=== PATIENT | female | born 1970 | race Caucasian/White ===

== ENCOUNTER → 2016-09-15 | Outpatient (CLI) | payer OTHER ==
--- NOTE | 2016-09-16 09:06 | Diagnostic Imaging Report ---
Bilateral screening mammogram The current study was also evaluated with a Computer Aided Detection (CAD) system. Indication: Screening. No current complaints stated on the questionnaire. COMPARISON: 06/19/15. FINDINGS: The breasts are composed of heterogeneously dense parenchyma which may decrease mammographic sensitivity. Benign-appearing calcifications are seen. Allowing for technique and positional differences, no suspicious change is seen. IMPRESSION: Dense breasts with no definite change. ACR BI-RADS Category 2: Benign findings. Result letter will be mailed to the patient. Note: At least 10% of breast cancer is not imaged by mammography. Dictated by: Dictated on workstation # [id number]
== END ==
LOC: RAD 11:18
PROVIDERS: ATTEND Family Medicine
DX: Z12.31 Encounter for screening mammogram for malignant neoplasm of breast (principal); R92.2 Inconclusive mammogram
CPT/HCPCS: 77067

== ENCOUNTER → 2017-01-23 | Outpatient (CLI) | payer OTHER ==
[2017-01-23 13:45] LABS: THYROID STIMULATING HORMONE 1.13 UIU/ML (0.35-4.94)
== END ==
LOC: LAB 12:53
PROVIDERS: ATTEND Family Medicine
DX: M79.2 Neuralgia and neuritis, unspecified (principal); R20.2 Paresthesia of skin
CPT/HCPCS: 36415; 84439; 84443; 85652

== ENCOUNTER → 2017-03-20 | Outpatient (CLI) | payer OTHER ==
--- NOTE | 2017-03-20 17:52 | Diagnostic Imaging Report ---
EXAMINATION: Four views of the cervical spine with extension and flexion views. INDICATION: Neck pain. History of cervical fusion at C6-7 level. FINDINGS: Anterior fusion hardware is seen at C6/7 and appear intact. There is suggestion of osseous fusion also seen between these two vertebral bodies. The alignment of the posterior spinal line is satisfactory. The vertebral body heights are preserved. Disc heights are also preserved. Minimal anterior osteophytes at C5/6 seen. Flexion and extension views demonstrate stable normal alignment of the cervical spine with these positions. There is prominent sclerosis along the facet joints at C7/T1 level. The prevertebral soft tissues appear unremarkable. IMPRESSION: Osseous fusion of C6/7 vertebra is seen. Suggestion of sclerotic degenerative changes at the facet joints at C7/T1. Dictated by: Dictated on workstation # [id number]
== END ==
LOC: RAD 10:05
PROVIDERS: ATTEND Neurological Surgery
DX: G95.0 Syringomyelia and syringobulbia (principal); Z98.1 Arthrodesis status
CPT/HCPCS: 72050

== ENCOUNTER 2017-05-11 10:38 | Outpatient (RCR) | payer OTHER | END 2017-06-05 09:03 | disposition home or self-care (01) | DX: M54.12 Radiculopathy, cervical region (principal) ==

== ENCOUNTER → 2017-06-07 | Outpatient (CLI) | payer OTHER ==
[~2017-06-07] MED LIST: GADOBUTROL 7.5 MMOL/7.5 ML (GADAVIST) VIAL IV ONE
--- NOTE | 2017-06-07 09:45 | Diagnostic Imaging Report ---
PROCEDURE: MR imaging cervical spine with and without contrast. TECHNIQUE: Multiplanar and multisequence MRI of the cervical spine was performed with and without contrast. INDICATION: Syrinx. There are no previous MRI examinations available for comparison. FINDINGS: The plain film examination of the cervical spine performed on 03/20/2017 noted postsurgical changes consistent with anterior fusion of C6 and C7. There is also sclerosis of the facet joints of C7 and T1. On this exam, there is metallic artifact related to the orthopedic fixation devices at the C6-C7 level. The orthopedic hardware appears to be in good position. There is no evidence for spinal stenosis or nerve root encroachment at the C6-C7 level. At C5-C6, there is a slight disc bulge centrally. The disc flattens the ventral aspect of the thecal sac and narrows the AP diameter of thecal sac to 11.0 MM. There does not appear to be any significant neural foraminal narrowing at this level. There is also slight disc bulge centrally at the C4-C5 level. The AP diameter of the thecal sac is narrowed to 11.7 MM. There is no nerve root encroachment at this level either. The remainder of the cervical spine is unremarkable for spinal stenosis or nerve root encroachment. There is no abnormal signal arising from the osseous structures to suggest bone edema or fracture. On the T2 sagittal images, there is a thin area of increased signal extending through the cord. Increased signal measures less than 1 MM in maximum AP diameter and extends from the C6-C7 disc level to the midportion of the vertebral body of T1. This does suggest a very small syrinx of the cord. This finding is of uncertain etiology. There is no abnormal enhancement of this portion of the cord on the postcontrast images to suggest an underlying neoplastic process. There is no sign of a paraspinal mass. The expected carotid and vertebral flow voids are evident bilaterally. IMPRESSION: 1. There are postsurgical changes consistent with anterior fusion of C6 and C7. The orthopedic hardware appears to be in good position and there is no sign of recurrent stenosis or nerve root encroachment at this level. 2. The remainder of the cervical spine is unremarkable for spinal stenosis or nerve root encroachment as well. 3. There is no acute bony abnormality identified. 4. There is a minimal syrinx of the lower cervical cord. This is of uncertain etiology. There is no abnormal enhancement in this area to suggest underlying neoplastic process, however. Dictated by: Dictated on workstation # [id number]
== END ==
LOC: RAD 07:00
PROVIDERS: ATTEND Neurological Surgery
DX: G95.0 Syringomyelia and syringobulbia (principal); M47.812 Spondylosis without myelopathy or radiculopathy, cervical region; Z98.890 Other specified postprocedural states
CPT/HCPCS: 72156

== ENCOUNTER → 2017-10-31 | Outpatient (CLI) | payer OTHER ==
[2017-10-31 11:13] LABS: BASOPHILS # (AUTO) 0.1 10^3/uL (0.0-0.1); BASOPHILS % (AUTO) 1 % (0-10); EOSINOPHILS # (AUTO) 0.2 10^3/uL (0.0-0.3); EOSINOPHILS % (AUTO) 4 % (0-10); HEMATOCRIT 32 % (35-52); HEMOGLOBIN 9.8 G/DL (11.5-16.0); LYMPHOCYTES # (AUTO) 1.9 X 10^3 (1.0-4.0); LYMPHOCYTES % (AUTO) 38 % (12-44); MEAN CORPUSCULAR HEMOGLOBIN 25 PG (25-34); MEAN CORPUSCULAR HGB CONC 31 G/DL (32-36); MEAN CORPUSCULAR VOLUME 80 FL (80-99); MEAN PLATELET VOLUME 9.3 FL (7.4-10.4); MONOCYTES # (AUTO) 0.5 X 10^3 (0.0-1.0); MONOCYTES % (AUTO) 10 % (0-12); NEUTROPHILS # (AUTO) 2.3 X 10^3 (1.8-7.8); NEUTROPHILS % (AUTO) 47 % (42-75); PLATELET COUNT 238 10^3/uL (130-400); RED BLOOD COUNT 3.95 10^6/uL (4.35-5.85); RED CELL DISTRIBUTION WIDTH 16.6 % (10.0-14.5); WHITE BLOOD COUNT 4.9 10^3/uL (4.3-11.0)
[2017-10-31 11:38] LABS: ALANINE AMINOTRANSFERASE 11 U/L (0-55); ALBUMIN 4.2 GM/DL (3.2-4.5); ALKALINE PHOSPHATASE 65 U/L (40-136); BILIRUBIN,TOTAL 0.3 MG/DL (0.1-1.0); BUN/CREATININE RATIO 7; CALCIUM 9.1 MG/DL (8.5-10.1); CARBON DIOXIDE 23 MMOL/L (21-32); CHLORIDE 109 MMOL/L (98-107); GFR ESTIMATED > 60; GLUCOSE 84 MG/DL (70-105); POTASSIUM 3.8 MMOL/L (3.6-5.0); SODIUM 139 MMOL/L (135-145)
[2017-10-31 11:59] LABS: FREE T4 (FREE THYROXINE) 0.81 NG/DL (0.70-1.48)
== END ==
LOC: LAB 10:46
PROVIDERS: ATTEND Family Medicine
DX: R53.83 Other fatigue (principal); D64.9 Anemia, unspecified; R06.00 Dyspnea, unspecified
CPT/HCPCS: 36415; 80053; 82728; 83540; 84439; 84443; 85025

== ENCOUNTER → 2018-02-09 | Outpatient (CLI) | payer OTHER ==
--- NOTE | 2018-02-09 10:42 | Diagnostic Imaging Report ---
Digital mammogram. Bilateral screening with 3-D tomosynthesis. The study was compared to prior exams of 12/03/2017, 06/19/2015, and 06/02/2014. At this time there are no current complaints. The current study was also evaluated with a Computer Aided Detection (CAD) system. FINDINGS: The fibroglandular tissue in both breasts is heterogeneously dense. This does limit the sensitivity of this exam. Overall, there does not appear to have been any significant change when compared to the prior study. No primary or secondary sign of malignancy is noted. IMPRESSION: There is no radiographic evidence for malignancy. ACR BI-RADS Category 1: Negative. Result letter will be mailed to the patient. Note: At least 10% of breast cancer is not imaged by mammography. Dictated by: Dictated on workstation # [id number]
== END ==
LOC: RAD 07:37
PROVIDERS: ATTEND Family Medicine
DX: Z12.31 Encounter for screening mammogram for malignant neoplasm of breast (principal)
CPT/HCPCS: 77067

== ENCOUNTER → 2018-09-19 | Outpatient (CLI) | payer OTHER ==
[2018-09-19 07:51] LABS: BASOPHILS % (AUTO) 1 % (0-10); EOSINOPHILS # (AUTO) 0.1 10^3/uL (0.0-0.3); EOSINOPHILS % (AUTO) 2 % (0-10); HEMATOCRIT 40 % (35-52); HEMOGLOBIN 13.4 G/DL (11.5-16.0); LYMPHOCYTES # (AUTO) 1.5 X 10^3 (1.0-4.0); LYMPHOCYTES % (AUTO) 27 % (12-44); MEAN CORPUSCULAR HEMOGLOBIN 32 PG (25-34); MEAN CORPUSCULAR HGB CONC 34 G/DL (32-36); MEAN CORPUSCULAR VOLUME 95 FL (80-99); MEAN PLATELET VOLUME 9.9 FL (7.4-10.4); MONOCYTES # (AUTO) 0.6 X 10^3 (0.0-1.0); MONOCYTES % (AUTO) 11 % (0-12); NEUTROPHILS # (AUTO) 3.3 X 10^3 (1.8-7.8); NEUTROPHILS % (AUTO) 59 % (42-75); PLATELET COUNT 193 10^3/uL (130-400); RED CELL DISTRIBUTION WIDTH 12.3 % (10.0-14.5); WHITE BLOOD COUNT 5.5 10^3/uL (4.3-11.0)
[2018-09-19 08:13] LABS: ALANINE AMINOTRANSFERASE 15 U/L (0-55); ALBUMIN 4.1 GM/DL (3.2-4.5); ALKALINE PHOSPHATASE 61 U/L (40-136); BILIRUBIN,TOTAL 0.5 MG/DL (0.1-1.0); BUN/CREATININE RATIO 13; CALCIUM 9.1 MG/DL (8.5-10.1); CARBON DIOXIDE 22 MMOL/L (21-32); CHLORIDE 108 MMOL/L (98-107); CHOLESTEROL 145 MG/DL (< 200); CREATININE SERUM 0.71 MG/DL (0.60-1.30); GFR ESTIMATED > 60; GLUCOSE 89 MG/DL (70-105); HDL CHOLESTEROL 63 MG/DL (40-60); SODIUM 141 MMOL/L (135-145); TOTAL PROTEIN 7.1 GM/DL (6.4-8.2); TRIGLYCERIDES 71 MG/DL (<150); VLDL CHOLESTEROL 14 MG/DL (5-40)
[2018-09-19 08:34] LABS: FREE T4 (FREE THYROXINE) 0.77 NG/DL (0.70-1.48)
== END ==
LOC: LAB 07:38
PROVIDERS: ATTEND Family Medicine
DX: Z00.00 Encounter for general adult medical examination without abnormal findings (principal)
CPT/HCPCS: 36415; 80053; 80061; 84439; 84443; 85025

== ENCOUNTER → 2019-02-11 | Outpatient (CLI) | payer OTHER ==
--- NOTE | 2019-02-11 09:06 | Diagnostic Imaging Report ---
INDICATION: Routine screening. COMPARISON: 02/09/2018 and 09/15/2016. TECHNIQUE: 2D and 3D bilateral screening mammography was performed with CAD. FINDINGS: Both breasts are heterogeneously dense, limiting the sensitivity of mammography. Benign nodules in the lateral aspect of the left breast are again noted and stable. There are benign calcifications in both breasts. No spiculated mass or malignant appearing microcalcifications are identified. The axillae are unremarkable. IMPRESSION: No mammographic features suspicious for malignancy are identified. ACR BI-RADS Category 2: Benign findings. Result letter will be mailed to the patient. Note: At least 10% of breast cancer is not imaged by mammography. Dictated by: Dictated on workstation # [id number]
== END ==
LOC: RAD 08:06
PROVIDERS: ATTEND Family Medicine
DX: Z12.31 Encounter for screening mammogram for malignant neoplasm of breast (principal)
CPT/HCPCS: 77067

== ENCOUNTER 2019-03-06 05:35 | Outpatient (CLI) | payer OTHER ==
[~2019-03-06] VITALS: Ht 167.7 cm; Wt 68.6 kg
[2019-03-06] MEDS ORDERED: FLUT9.9S NSEACH (13:55)
[2019-03-06] MEDS ORDERED: MULT-884 PO (13:55)
[2019-03-06] MEDS ORDERED: CETI10TA20 PO (13:55)
== END 2019-03-06 14:04 | disposition home or self-care (01) ==
LOC: PREOP 05:35
PROVIDERS: ATTEND Podiatrist Foot & Ankle Surgery
DX: Z01.818 Encounter for other preprocedural examination (principal)

== ENCOUNTER 2019-03-08 11:28 | Day surgery (SDC) | payer OTHER ==
[~2019-03-08] VITALS: Ht 167.7 cm; Wt 68.6 kg
[2019-03-08] VITALS (11 sets, daily range): BP systolic 112–127; BP diastolic 70–76
[~2019-03-08 11:28] MED LIST changes: +CETI10TA20 PO; +FLUT9.9S NSEACH; -GADOBUTROL 7.5 MMOL/7.5 ML (GADAVIST) VIAL IV ONE; +MULT-884 PO
[2019-03-08] MEDS ORDERED: ceFAZolin INJECTION 1,000 MG in WATER (STERILE) FOR INJECTION 10 ML IV ONE (11:45)
[2019-03-08] MEDS ORDERED: fentaNYL INJECTION 100 MCG/2 ML AMP ONE ×3 (11:52→17:10)
[2019-03-08] MEDS ORDERED: proPOfol 200 MG/20 ML (DIPRIVAN) VIAL IV ONE (11:56)
[2019-03-08] MEDS ORDERED: ONDANSETRON 4 MG/2 ML (SDV) Z0FRAN ONE ×3 (11:56→17:05)
[2019-03-08] MEDS ORDERED: DEXAMETHASONE 10 MG/ML (DECADRON) 1 ML VIAL ONE ×2 (11:56→12:19)
[2019-03-08] MEDS ORDERED: LIDOCAINE PF 2% 5 ML (XYLOCAINE) VIAL ONE (11:56)
[2019-03-08] MEDS ORDERED: SEVOFLURANE (ULTANE) 15 ML INHAL SOLN ONE ×4 (11:56→17:03)
[2019-03-08] MEDS ORDERED: MIDAZOLAM 2 MG/2 ML (VERSED) VIAL ONE ×2 (11:57→12:36)
[2019-03-08] MEDS ORDERED: KETAMINE/NaCl 50 MG/5 ML SYRINGE (ED ONLY) ONE (11:57)
[2019-03-08] MEDS ORDERED: fentaNYL INJECTION 100 MCG/2 ML AMP IV ONE (12:00)
[2019-03-08] MEDS: LACTATED RINGERS 1,000 ML IV PRN ×3 (12:03→18:10)
[2019-03-08] MEDS ORDERED: IBUP-2055 PO (12:10)
[2019-03-08] MEDS ORDERED: ACET-77 PO (12:10)
[2019-03-08] MEDS ORDERED: BUPIVACAINE 0.5% 30 ML (SENSORCAINE) VIAL ONE (12:20)
[2019-03-08] MEDS ORDERED: ceFAZolin INJECTION 1,000 MG ONE (12:39)
[2019-03-08] MEDS ORDERED: WATER (STERILE) FOR INJECTION 10 ML ONE (12:39)
--- NOTE | 2019-03-08 12:45 | Progress Note-Pre Operative ---
Pre-Operative Progress Note H&P Reviewed The H&P was reviewed, patient examined and no changes noted. Date Seen by Provider: Mar 08, 2019 Time Seen by Provider: 12:45 Date H&P Reviewed: Mar 08, 2019 Time H&P Reviewed: 12:45 Pre-Operative Diagnosis: Hallux valgus, hypertrophic 2nd metatarsal, 2nd hammertoe, all left foot KYLEE DONOVAN DPM Mar 08, 2019 12:45 POS
[2019-03-08] MEDS ORDERED: ROCURONIUM 10 MG/ML 5 ML SYRINGE IV ONE (12:52)
[2019-03-08] MEDS ORDERED: SUCCINYLCHOLINE INJ 100 MG/5 ML SYR ONE (12:52)
[2019-03-08] MEDS ORDERED: ceFAZolin INJECTION 1,000 MG IV ONE (13:26)
[2019-03-08] MEDS ORDERED: CATHETER FLUSH 10 ML SYR IV PRN (14:15)
[2019-03-08] MEDS ORDERED: PHENYLEPHRINE 100 MCG/ML 10 ML (ANESTHESIA) SYR ONE (14:27)
--- NOTE | 2019-03-08 16:58 | Progress Note-Post Operative ---
Post-Operative Progess Note Surgeon (s)/Pitch Filler (s) Surgeon KYLEE DONOVAN DPM Pitch Filler: None Pre-Operative Diagnosis Hallux valgus, hypertrophic 2nd metatarsal, 2nd hammertoe, all left foot Post-Operative Diagnosis Same plus DJD or left 1st MTPJ Procedure & Operative Findings Date of Procedure 03/08/19 Procedure Performed/Findings Arthrodesis of the 1st metatarsal-cuneiform joint, Candido bunionectomy, 2nd metatarsal osteotomy, hammertoe reduction 2nd digit, all left Anesthesia Type General Estimated Blood Loss Estimated blood loss (mL): Minimal Specimens/Packing Specimens Removed none KYLEE DONOVAN DPM Mar 08, 2019 16:58 POS
[2019-03-08] MEDS ORDERED: fentaNYL INJECTION 100 MCG/2 ML AMP IVP ONE (17:15)
[2019-03-08] MEDS ORDERED: ONDANSETRON 4 MG/2 ML (SDV) Z0FRAN IVP PRN (17:15)
[2019-03-08] MEDS ORDERED: PROMETHAZINE INJ 25 MG/ML (PHENERGAN) AMP ONE (17:21)
[2019-03-08] MEDS ORDERED: PROMETHAZINE INJ 25 MG/ML (PHENERGAN) AMP IVP PRN (17:30)
--- NOTE | 2019-03-08 17:44 | Anesthesia-General Post-Op ---
General Patient Condition Mental Status/LOC: Same as Preop Cardiovascular: Satisfactory Nausea/Vomiting: Present Respiratory: Satisfactory Pain: Controlled Complications: Absent Post Op Complications Complications None Follow Up Care/Instructions Patient Instructions None needed. Anesthesia/Patient Condition Patient Condition Patient is doing well, C/O nausea but it is better after phenergan, stable vital signs, no apparent adverse anesthesia problems. BARBRA LOUISE DO Mar 08, 2019 17:44 POS
[2019-03-08] MEDS ORDERED: ONDANSETRON 4 MG/2 ML (SDV) Z0FRAN IVP ONE (18:30)
--- NOTE | 2019-03-09 03:07 | OPERATIVE REPORT ---
DATE OF SERVICE: 03/08/2019 SURGEON: Chayo Donovan DPM PREOPERATIVE DIAGNOSES: 1. Hallux abductovalgus with metatarsal primus varus, left. 2. Hypertrophic second metatarsal, left. 3. Hammer digit syndrome, left second digit. POSTOPERATIVE DIAGNOSES: 1. Hallux abductovalgus with metatarsal primus varus, left. 2. Hypertrophic second metatarsal, left. 3. Hammer digit syndrome, left second digit. 4. 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 PROCEDURES: 1. Arthrodesis of the left first metatarsal cuneiform joint. 2. Candido type bunionectomy, left. 3. Second metatarsal osteotomy. 4. Reduction of hammertoe, left second digit with K-wire fixation. WOUND CLASS: Clean. ANESTHESIA: General. HEMOSTASIS: Pneumatic thigh tourniquet at 250 mmHg. INDICATIONS: This 48-year-old female presents complaining of a painful left foot. Conservative therapy is met with unsatisfactory results and the patient is agreeable to surgical intervention after risks and complications were discussed at length. No guarantees were extended to the patient and she is willing to proceed. DESCRIPTION OF PROCEDURE: The patient was brought back to the operating table, placed in secure supine position. Appropriate timeout was performed. Pneumatic thigh tourniquet was placed on the left lower extremity over several layers of padding. The general anesthetic was then induced. The left foot was anesthetized utilizing 10 mL of 0.5% Marcaine injected in a Montiel block as well as a local infusion to the second metatarsal, left foot was then prepped and draped in normal sterile manner. The left foot was then elevated, allowed to exsanguinate after which the tourniquet was inflated to 250 mmHg. Attention was then directed to the dorsal aspect of the left first metatarsal cuneiform joint where a 6 cm longitudinal linear incision was created. The incision was deepened in same plane with great care to identify and retract all vital neurovascular structures. All the necessary blood vessels were cauterized as encountered. The incision was deepened down to the deep tissue where the extensor hallucis longus was identified and retracted medially. Dissection was carried out down to the capsule tissue and periosteum certain on the dorsal aspect of the first metatarsal cuneiform joint where subperiosteal dissection was then carried out. Next, the articular cartilage from the distal aspect of the medial cuneiform and the base of the first metatarsal were then removed utilizing the oscillating saw. The cuts were biased in an orientation of the greater amount of bone reduction from the plantar aspect of the cut. This allowed for greater plantar flexion of the first metatarsal. It also was biased as to reduce the first intermetatarsal angle down to approximately zero. Once the articular cartilage was removed, the distal aspect of the medial cuneiform and the base of the first metatarsal were fenestrated. The wound was flushed at this point and a Welsh allograft was placed into the arthrodesis site. First a 5 mm sizer was applied and the intraoperative x-ray demonstrated excellent reduction of the first intermetatarsal angle as well as plantar flexion of the distal aspect of the first metatarsal; however, it was found that the 8 mm sizer provided a better parabola length for the forefoot. The allograft bone was then placed inside the arthrodesis site and the first metatarsal cuneiform joint was further shaped and contoured with a power sagittal saw and power bur. The Welsh plating system was then used. A left Lapidus graft splinting plate was used with the 2 proximal screws of 3.5 locking screws of 20 and 18 mm of length. Next, the interfragment screw was applied from distal dorsal to proximal plantar. It was a 3.5 screw of 40 mm of length confirmed by intraoperative C-arm. Also locking screws of 3.5 mm diameter and one was 16 mm of length and the other was 20 mm of length. The plantar distal screw was then placed with a percutaneous puncture incision from the medial aspect of the first metatarsal and this screw was a 3.5 screw of 20 mm of length. Excellent bony apposition and fixation was appreciated at this time. The intraoperative x-ray indicated excellent reduction of the first intermetatarsal angle and appropriate length of the metatarsal parabola. The wound was flushed with copious amounts of normal saline and closure was then performed in layers. Deep closure was performed with 3-0 Vicryl, superficial with 4-0 Vicryl, skin closed with 4-0 Prolene in a horizontal mattress type stitch. Attention was then directed to the dorsal aspect of the left first metatarsophalangeal joint where a 4.5 cm longitudinal linear incision was created. The incision was deepened in the same plane with great care to identify and retract all vital neurovascular structures. Only the necessary blood vessels were cauterized as encountered. The incision was deepened down to the capsular tissue where a longitudinal capsulotomy was performed. This exposed the hypertrophic medial eminence of the first metatarsal head, which was resected utilizing a power sagittal saw. The dorsal eminence to the first metatarsal head was also resected with power sagittal saw and the area was further contoured and smoothed with a power fuentes. Inspection of the head of the first metatarsal noted an area of approximately 7 x 5 mm that was devoid of articular cartilage to the central aspect distal first metatarsal head. This area was then fenestrated and debrided of loose articular cartilage. The area was then flushed with copious amounts of normal saline. Attention was then directed to the diaphysis of the proximal phalanx, left hallux where subperiosteal dissection was carried out. An osteotomy was then performed in this area. Utilizing a power sagittal saw, an Candido type of procedure was performed with the base medial and lateral cortices of the diaphysis held intact. The wedge of bone was resected and the gap was closed reducing the hallux valgus deformity. The wound was flushed with copious amounts of normal saline. Two passport application examiner holes were created to the dorsal medial aspect of the osteotomy and a 28-gauge monofilament guidewire was then passed through this passport application examiner hole securing the osteotomy in a closed position. Excellent bony apposition and fixation was appreciated at this time. The first metatarsophalangeal joint was then placed through passive range of motion with minimal crepitation noted at this time. Inspection of the sesamoids indicated no specific adhesions at this time. The wound was flushed with copious amounts of normal saline and closure was then performed. Deep closure was performed with 3-0 Vicryl, superficial with 4-0 Vicryl, skin closure with 4-0 Prolene in a horizontal mattress type stitch. Attention was then directed to the dorsal aspect of the distal left second ray where a 6 cm longitudinal linear incision was created from the distal interphalangeal joint of the toe up into the surgical neck area of the second metatarsal. The incision was deepened in the same plane with great care to identify and retract all vital neurovascular structures. Only necessary blood vessels were cauterized as encountered. The excision was deepened down to the extensor tendon where a Z slide lengthening was performed. The extensor tendon was reflected proximally. The extensor brand released. A longitudinal capsulotomy was performed and subperiosteal dissection carried out to the dorsal aspect of the surgical neck of the second metatarsal. After this a power sagittal saw was utilized to create an oblique osteotomy from dorsal to plantar with the distal lateral to proximal medial orientation. This allowed the capital fragment to translocate proximally and medially realigning the second digit in a more appropriate behavior. Once the realignment had been performed, a 2.0 snap-off screw 14 mm of length was driven from distal medial to proximal lateral across the osteotomy with excellent bony apposition and fixation was appreciated at this time. Attention was then directed to the distal interphalangeal joint of the left second toe where an arthrodesis was performed to the proximal interphalangeal joint. The head of the proximal phalanx was fashioned into a peg and a hole was created to the base of the middle phalanx for the peg-in-hole type arthrodesis. Once the digit was aligned a 0.054 smooth K-wire was driven down the toe securing the arthrodesis site and toe in rectus alignment. The excess K wire out the end of the toe was cut and a protective ball placed over the end of the wire. The wound was flushed with copious amounts of normal saline throughout the procedure. The wound was then closed in layers. The deep closure was performed with 3-0 Vicryl, superficial with 4-0 Vicryl, skin closed with 4-0 Prolene in a horizontal mattress type stitch. Postoperative injection consisted of 18 mL of 0.5% Marcaine injected in a Montiel block as well as a block to the second ray, left foot. Postoperative injection also included 10 mg dexamethasone into the first intermetatarsal space, left foot. Postoperative dressing consisted of Betadine soaked Adaptic, sterile 4 x 4, sterile Kerlix all secured with a Coban wrap. The patient tolerated the anesthesia and procedure well and was transported from the operating room to the recovery area with vital signs stable and vascular status intact to all digits of the left foot. She was given a prescription for Keflex and Vicodin postoperatively. She is to be nonweightbearing on the left lower extremity and rest, ice and elevate. We will see the patient back in the office in approximately 10 days' period of time or sooner if necessary. Job ID: [id number] DocumentID: [id number] Dictated Date: 03/08/2019 17:16:44 Audio Visual Production Specialist Date: 03/09/2019 03:06:35 Dictated By: CHAYO DONOVAN DPM
== END 2019-03-08 19:50 | disposition home or self-care (01) ==
LOC: SDC 11:28
PROVIDERS: ATTEND Podiatrist Foot & Ankle Surgery
DX: M20.12 Hallux valgus (acquired), left foot (principal); M89.372 Hypertrophy of bone, left ankle and foot; M20.42 Other hammer toe(s) (acquired), left foot; M19.042 Primary osteoarthritis, left hand; Z79.2 Long term (current) use of antibiotics; Z79.899 Other long term (current) drug therapy
CPT/HCPCS: 84703; 87081

== ENCOUNTER 2019-04-26 11:15 | Outpatient (RCR) | payer OTHER ==
[~2019-04-26 11:15] MED LIST changes: +ACET-78 PO; +IBUP-2473 PO
== END 2019-05-29 | disposition home or self-care (01) ==
DX: M54.12 Radiculopathy, cervical region (principal); R29.898 Other symptoms and signs involving the musculoskeletal system

== ENCOUNTER → 2019-10-14 | Outpatient (CLI) | payer OTHER ==
[~2019-10-14] MED LIST changes: -CETI10TA20 PO; +CETI10TA21 PO
[2019-10-14 07:40] LABS: BASOPHILS # (AUTO) 0.1 10^3/uL (0.0-0.1); BASOPHILS % (AUTO) 1 % (0-10); EOSINOPHILS # (AUTO) 0.2 10^3/uL (0.0-0.3); EOSINOPHILS % (AUTO) 4 % (0-10); HEMATOCRIT 39 % (35-52); HEMOGLOBIN 13.1 G/DL (11.5-16.0); LYMPHOCYTES # (AUTO) 1.9 X 10^3 (1.0-4.0); LYMPHOCYTES % (AUTO) 33 % (12-44); MEAN CORPUSCULAR HEMOGLOBIN 31 PG (25-34); MEAN CORPUSCULAR HGB CONC 34 G/DL (32-36); MEAN CORPUSCULAR VOLUME 93 FL (80-99); MONOCYTES # (AUTO) 0.6 X 10^3 (0.0-1.0); MONOCYTES % (AUTO) 11 % (0-12); NEUTROPHILS % (AUTO) 52 % (42-75); PLATELET COUNT 194 10^3/uL (130-400); RED CELL DISTRIBUTION WIDTH 12.8 % (10.0-14.5); WHITE BLOOD COUNT 5.8 10^3/uL (4.3-11.0)
[2019-10-14 08:03] LABS: ALANINE AMINOTRANSFERASE 13 U/L (0-55); ALKALINE PHOSPHATASE 53 U/L (40-136); BILIRUBIN,TOTAL 0.3 MG/DL (0.1-1.0); BUN/CREATININE RATIO 18; CALCIUM 9.2 MG/DL (8.5-10.1); CARBON DIOXIDE 21 MMOL/L (21-32); CHLORIDE 108 MMOL/L (98-107); CHOLESTEROL 165 MG/DL (< 200); CREATININE SERUM 0.76 MG/DL (0.60-1.30); GFR ESTIMATED > 60; GLUCOSE 92 MG/DL (70-105); HDL CHOLESTEROL 66 MG/DL (40-60); SODIUM 140 MMOL/L (135-145); TOTAL PROTEIN 7.2 GM/DL (6.4-8.2); TRIGLYCERIDES 55 MG/DL (<150); VLDL CHOLESTEROL 11 MG/DL (5-40)
== END ==
LOC: LAB 07:27
PROVIDERS: ATTEND Family Medicine
DX: Z00.00 Encounter for general adult medical examination without abnormal findings (principal)
CPT/HCPCS: 36415; 80053; 80061; 84443; 85025

== ENCOUNTER 2020-01-16 13:58 | Outpatient (RCR) | payer OTHER ==
[~2020-01-16 13:58] MED LIST changes: -CETI10TA21 PO; +CETI10TA49 PO
== END 2020-02-10 | disposition home or self-care (01) ==
PROVIDERS: ATTEND Podiatrist Foot & Ankle Surgery
DX: M21.272 Flexion deformity, left ankle and toes (principal); Z98.1 Arthrodesis status

== ENCOUNTER → 2020-06-01 | Outpatient (CLI) | payer OTHER ==
--- NOTE | 2020-06-01 09:36 | Diagnostic Imaging Report ---
INDICATION: Routine screening. COMPARISON: 02/11/2019 and 02/09/2018. TECHNIQUE: 2D and 3D bilateral screening mammography was performed with CAD. FINDINGS: Both breasts are heterogeneously dense, limiting the sensitivity of mammography. There are benign calcifications in both breasts. Benign nodules in the outer left breast appear stable. No new mass or malignant appearing microcalcifications are seen. The axillae are unremarkable. IMPRESSION: No mammographic features suspicious for malignancy are identified. ACR BI-RADS Category 2: Benign findings. Result letter will be mailed to the patient. Note: At least 10% of breast cancer is not imaged by mammography. Dictated by: Dictated on workstation # [id number]
== END ==
LOC: RAD 08:00
PROVIDERS: ATTEND Nurse Practitioner Family
DX: Z12.31 Encounter for screening mammogram for malignant neoplasm of breast (principal)
CPT/HCPCS: 77063; 77067

== ENCOUNTER → 2020-10-30 | Outpatient (CLI) | payer OTHER ==
[2020-10-30 07:53] LABS: BASOPHILS % (AUTO) 1 % (0-10); EOSINOPHILS # (AUTO) 0.1 10^3/uL (0.0-0.3); EOSINOPHILS % (AUTO) 2 % (0-10); HEMATOCRIT 39 % (35-52); HEMOGLOBIN 13.1 g/dL (11.5-16.0); LYMPHOCYTES # (AUTO) 1.5 10^3/uL (1.0-4.0); LYMPHOCYTES % (AUTO) 37 % (12-44); MEAN CORPUSCULAR HEMOGLOBIN 33 pg (25-34); MEAN CORPUSCULAR HGB CONC 33 g/dL (32-36); MEAN CORPUSCULAR VOLUME 98 fL (80-99); MEAN PLATELET VOLUME 9.3 fL (9.0-12.2); MONOCYTES # (AUTO) 0.5 10^3/uL (0.0-1.0); MONOCYTES % (AUTO) 12 % (0-12); NEUTROPHILS # (AUTO) 1.9 10^3/uL (1.8-7.8); NEUTROPHILS % (AUTO) 48 % (42-75); PLATELET COUNT 188 10^3/uL (130-400)
[2020-10-30 08:14] LABS: ALANINE AMINOTRANSFERASE 15 U/L (0-55); ALBUMIN 3.9 GM/DL (3.2-4.5); ALKALINE PHOSPHATASE 49 U/L (40-136); BILIRUBIN,TOTAL 0.2 MG/DL (0.1-1.0); BUN/CREATININE RATIO 16; CALCIUM 8.9 MG/DL (8.5-10.1); CARBON DIOXIDE 25 MMOL/L (21-32); CHLORIDE 109 MMOL/L (98-107); CHOLESTEROL 146 MG/DL (< 200); CREATININE SERUM 0.75 MG/DL (0.60-1.30); GFR ESTIMATED > 60; GLUCOSE 88 MG/DL (70-105); HDL CHOLESTEROL 57 MG/DL (40-60); POTASSIUM 3.8 MMOL/L (3.6-5.0); SODIUM 142 MMOL/L (135-145); TOTAL PROTEIN 6.8 GM/DL (6.4-8.2); TRIGLYCERIDES 49 MG/DL (<150); VLDL CHOLESTEROL 10 MG/DL (5-40)
[2020-10-30 08:35] LABS: FREE T4 (FREE THYROXINE) 0.76 NG/DL (0.70-1.48)
== END ==
LOC: LAB 07:31
PROVIDERS: ATTEND Family Medicine
DX: Z00.00 Encounter for general adult medical examination without abnormal findings (principal); S92.902G Unspecified fracture of left foot, subsequent encounter for fracture with delayed healing
CPT/HCPCS: 36415; 80053; 80061; 82306; 84439; 84443; 85025

== ENCOUNTER 2021-02-05 05:32 | Outpatient (CLI) | payer OTHER ==
[~2021-02-05] VITALS: Ht 167.6 cm; Wt 67.2 kg
[2021-02-08] MEDS ORDERED: ACET-93 PO (13:19)
[2021-02-08] MEDS ORDERED: CALC-79 PO (13:19)
[2021-02-08] MEDS ORDERED: MV-M1TAB57 PO (13:19)
== END 2021-02-08 14:16 | disposition home or self-care (01) ==
LOC: PREOP 05:32
PROVIDERS: ATTEND Internal Medicine
DX: Z01.818 Encounter for other preprocedural examination (principal)

== ENCOUNTER 2021-02-12 06:58 | Day surgery (SDC) | payer OTHER ==
--- NOTE | 2021-02-08 07:55 | HISTORY AND PHYSICAL ---
DATE OF SERVICE: COLONOSCOPY HISTORY AND PHYSICAL DATE OF ADMISSION: . HISTORY OF PRESENT ILLNESS: The patient is a 50-year-old white female referred by Dr. Brown for her first screening colonoscopy. She has had one maternal uncle with colon cancer, but is not aware of any other family history for colon cancer. She denies abdominal pain, bowel habit change, melena or bright red blood per rectum. She has been feeling well in her usual state of good health. PAST SURGICAL HISTORY: Significant for two C-sections. She had a cervical C6-7 fusion, has had breast reduction surgery and left bunionectomy with osteotomy. PAST MEDICAL HISTORY: Otherwise, unremarkable. MEDICATIONS: She takes no prescription medication. ALLERGIES: She reports no known drug allergies. SOCIAL HISTORY: She is employed, service desk associate staff at [employer] with no past smoking or drinking history. PHYSICAL EXAMINATION: GENERAL: Reveals a white female, appears to be in no acute distress, alert, articulate, and well kempt. VITAL SIGNS: Weight 157 pounds and blood pressure 110/80. HEENT: Unremarkable. Sclerae nonicteric. CHEST: Clear to auscultation. CARDIOVASCULAR: Reveals a regular rate and rhythm without murmur, S3 or S4. ABDOMEN: Soft, supple without mass, organomegaly or tenderness. EXTREMITIES: Reveal no cyanosis, clubbing or edema. ASSESSMENT AND PLAN: The patient is being set up for her first screening colonoscopy, deemed to be essentially at the average risk. She does have one maternal uncle diagnosed with colon cancer greater than 60 years of age. I thank you for the referral of this pleasant lady. Job ID: [id number] DocumentID: [id number] Dictated Date: 01/28/2021 18:05:42 Ocean Clam Boat Captain Date: 01/28/2021 18:27:35 Dictated By: WILLIAM OLSEN MD
[~2021-02-12] VITALS: Ht 167.6 cm; Wt 67.2 kg
[~2021-02-12 06:58] MED LIST changes: +ACET-93 PO; +CALC-79 PO; +MV-M1TAB57 PO
[2021-02-12] MEDS ORDERED: LACTATED RINGERS 1,000 ML IV STA (06:59)
[2021-02-12] MEDS ORDERED: LIDOCAINE JELLY 2% 6 ML SYRINGE MM PRN (07:00)
[2021-02-12] MEDS ORDERED: PROPOFOL INJECTION 50 ML IV ONE (07:03)
[2021-02-12] MEDS ORDERED: MIDAZOLAM 2 MG/2 ML (VERSED) VIAL ONE (07:03)
[2021-02-12] MEDS ORDERED: LACTATED RINGERS 1,000 ML IV ONE (07:07)
[2021-02-12 07:13] VITALS: BP 118/73
--- NOTE | 2021-02-12 07:21 | Pre-Op Note & Conscious Sedat ---
Pre-Operative Progress Note H&P Reviewed The H&P was reviewed, patient examined and no changes noted. Date H&P Reviewed: Feb 12, 2021 Time H&P Reviewed: 07:21 Conscious Sedation Pre-Proced ASA Score 1 For ASA 3 and 4: Consider anesthesia and medical clearance. Also, for patients with a history of failed moderate sedation consider anesthesia. Airway Lungs Heart ASA score ASA 1: a normal healthy patient ASA 2: a patient with a mild systemic disease (mid diabetes, controlled hypertension, obesity ASA 3: a patient with a severe systemic disease that limits activity (angina, COPD, prior Myocardial infarction) ASA 4: a patient with an incapacitating disease that is a constant threat to life (CHF, renal failure) ASA 5: a moribund patient not expected to survive 24 hrs. (ruptured aneurysm) ASA 6: a declared brain- patient whose organs are being harvested. For emergent operations, add the letter E after the classification Mallampati Classification Grade 2 Sedation Plan Analgesia, Amnesia, Plan communicated to team members, Discussed options with patient/fam, Discussed risks with patient/fam The patient is an appropriate candidate to undergo the planned procedure, sedation, and anesthesia. The patient immediately re-assessed prior to indication. WILLIAM OLSEN MD Feb 12, 2021 07:21
[2021-02-12 08:20] VITALS: BP 83/51
[2021-02-12 08:25] VITALS: BP 95/66
[2021-02-12 08:30] VITALS: BP 96/63
[2021-02-12 08:45] VITALS: BP 108/74
--- NOTE | 2021-02-12 12:48 | Anesthesia-General Post-Op ---
MAC Patient Condition Mental Status/LOC: Same as Preop Cardiovascular: Satisfactory Nausea/Vomiting: Absent Respiratory: Satisfactory Pain: Controlled Complications: Absent Post Op Complications Complications None Follow Up Care/Instructions Patient Instructions None needed. Anesthesiology Discharge Order Discharge Order Patient is doing well, no complaints, stable vital signs, no apparent adverse anesthesia problems. No complications reported per nursing. TONE BELTRAN CRNA Feb 12, 2021 12:48
--- NOTE | 2021-02-12 13:43 | OPERATIVE REPORT ---
DATE OF SERVICE: COLONOSCOPY SUMMARY INDICATION FOR THE PROCEDURE: Screening colonoscopy. PROCEDURE: The patient was placed in the left lateral decubitus position. Prior to undergoing colonoscopy, a digital rectal evaluation was performed. Anal sphincter tone was normal and the perianal reflexes intact. FINDINGS: No evidence for internal or external hemorrhoids. The rectum was unremarkable. Several small sigmoid diverticulum were present without evidence for diverticulitis. The remainder of the sigmoid colon was unremarkable. The descending colon, splenic flexure, transverse colon, hepatic flexure, ascending colon and cecum were unremarkable. Quality of prep was good. ASSESSMENT: Mild diverticular disease confined to the sigmoid colon was present without evidence for diverticulitis. This was an otherwise normal colonoscopy under good prep conditions. We would advocate consideration for repeat screening colonoscopy in 10 years as the patient is not aware of any family history for colon cancer. I thank you for the referral of this pleasant lady. Job ID: [id number] DocumentID: [id number] Dictated Date: 02/12/2021 08:18:43 Renewals Specialist Date: 02/12/2021 13:42:44 Dictated By: WILLIAM OLSEN MD
== END 2021-02-12 09:20 | disposition home or self-care (01) ==
LOC: ENDO 06:58
PROVIDERS: ATTEND Internal Medicine
DX: Z12.11 Encounter for screening for malignant neoplasm of colon (principal); K57.30 Diverticulosis of large intestine without perforation or abscess without bleeding; Z79.899 Other long term (current) drug therapy; Z80.0 Family history of malignant neoplasm of digestive organs
CPT/HCPCS: 84703

== ENCOUNTER → 2021-06-16 | Outpatient (CLI) | payer OTHER ==
--- NOTE | 2021-06-17 08:13 | Diagnostic Imaging Report ---
Digital mammogram INDICATION: Bilateral screening This study was compared to the prior exam of 06/01/2020 02/09/2018 and 09/15/2016. At this time there are no current complaints. The current study was also evaluated with a Computer Aided Detection (CAD) system. FINDINGS: The fibroglandular tissue in both breasts is heterogeneously dense. This does limit the sensitivity of this exam. Overall, there does not appear to have been any significant change when compared to the prior study. No primary or secondary sign of malignancy is noted. IMPRESSION: There is no radiographic evidence for malignancy. ACR BI-RADS Category 1: Negative. Result letter will be mailed to the patient. Note: At least 10% of breast cancer is not imaged by mammography. Dictated by: Dictated on workstation # [id number]
== END ==
LOC: RAD 15:28
PROVIDERS: ATTEND Family Medicine
DX: Z12.31 Encounter for screening mammogram for malignant neoplasm of breast (principal)
CPT/HCPCS: 77063; 77067

== ENCOUNTER 2021-07-16 05:34 | Outpatient (CLI) | payer OTHER ==
[~2021-07-16] VITALS: Ht 167.7 cm; Wt 63.6 kg
[2021-07-16] MEDS ORDERED: ZINC50TA51 PO (11:09)
[2021-07-16] MEDS ORDERED: ASCO100024 PO (11:09)
[2021-07-16] MEDS ORDERED: MV-M1TAB88 PO (11:09)
== END 2021-07-16 11:31 | disposition home or self-care (01) ==
LOC: PREOP 05:34
PROVIDERS: ATTEND Orthopaedic Surgery
DX: Z01.818 Encounter for other preprocedural examination (principal)

== ENCOUNTER 2021-07-21 09:00 | Day surgery (SDC) | payer OTHER ==
--- NOTE | 2021-07-16 09:44 | HISTORY AND PHYSICAL ---
DATE OF SERVICE: ADMISSION HISTORY AND PHYSICAL DATE OF ADMISSION: 07/21/2021. This will be for outpatient surgery on 07/21/2021 for right carpal tunnel release. 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 She reports night pain. She has tried rest, splinting and activity modifications without relief. She reports pain and paresthesias into her thumb, index and long fingers. Due to progressive symptoms and failure to improve with conservative measures, the patient has elected to proceed with surgical intervention. REVIEW OF SYSTEMS: No recent chest pain, shortness of breath or dysuria. PAST SURGICAL HISTORY: Anterior cervical diskectomy and fusion, left foot bunion, breast reduction, x2, and a right knee arthroscopy. PAST MEDICAL HISTORY: Unremarkable. FAMILY HISTORY: Significant for COPD and hyperlipidemia. PRIMARY CARE PROVIDER: Dr. Brown. MEDICATIONS: Multivitamins. ALLERGIES: No known drug allergies. SOCIAL HISTORY: The patient denies alcohol and tobacco use. PHYSICAL EXAMINATION: GENERAL: The patient is well-developed, well-nourished, in no acute distress. HEENT: Normocephalic and atraumatic. Pupils are equal, round, and reactive to light. Oropharynx is clear. NECK: Supple and no lymphadenopathy. LUNGS: Clear to auscultation bilaterally. HEART: Regular rate and rhythm. ABDOMEN: Soft, nontender, and nondistended. EXTREMITIES: The right hand demonstrates a positive Tinel's at the carpal tunnel with a positive Phalen's maneuver. She has decreased sensation in the median distribution. No thenar atrophy is noted. She has a negative Spurling's maneuver. Negative elbow flexion test. Negative Tinel's at the cubital tunnel. IMPRESSION: Right carpal tunnel syndrome. PLAN: Right carpal tunnel release. The risks, benefits, options, ramifications and recovery have been discussed at length with the patient. She understands and wishes to proceed. Job ID: [id number] DocumentID: [id number] Dictated Date: 07/15/2021 10:58:06 Automation Controls Engineer Date: 07/15/2021 11:20:08 Dictated By: JIMMY BAILEY MD
[2021-07-21] VITALS (8 sets, daily range): BP systolic 103–123; BP diastolic 73–79
[~2021-07-21] VITALS: Ht 167.7 cm; Wt 63.6 kg
[~2021-07-21 09:00] MED LIST changes: +ASCO100024 PO; +MV-M1TAB88 PO; +ZINC50TA51 PO
[2021-07-21] MEDS ORDERED: LACTATED RINGERS 1,000 ML IV PRN (09:15)
[2021-07-21] MEDS ORDERED: ceFAZolin 2 GM IV Premixed 50 ML IV ONE (09:15)
[2021-07-21] MEDS ORDERED: BUPIVACAINE 0.5% 30 ML (SENSORCAINE) VIAL ONE (09:17)
[2021-07-21] MEDS ORDERED: PROPOFOL INJECTION 50 ML IV ONE (09:22)
[2021-07-21] MEDS ORDERED: MIDAZOLAM 2 MG/2 ML (VERSED) VIAL ONE (09:22)
--- NOTE | 2021-07-21 09:23 | Progress Note-Pre Operative ---
Pre-Operative Progress Note H&P Reviewed The H&P was reviewed, patient examined and no changes noted. Date Seen by Provider: Jul 21, 2021 Time Seen by Provider: : Date H&P Reviewed: Jul 21, 2021 Time H&P Reviewed: : Pre-Operative Diagnosis: right carpal tunnel syndrome JIMMY BAILEY MD Jul 21, 2021 09:23
--- NOTE | 2021-07-21 09:24 | Progress Note-Post Operative ---
Post-Operative Progess Note Surgeon (s)/Job Recruiter (s) Surgeon JIMMY BAILEY MD Job Recruiter: none Pre-Operative Diagnosis right carpal tunnel syndrome Post-Operative Diagnosis right carpal tunnel syndrome Procedure & Operative Findings Date of Procedure 07/21/21 Procedure Performed/Findings right carpal tunnel release Anesthesia Type MACplus local Estimated Blood Loss Estimated blood loss (mL): minimal Specimens/Packing Specimens Removed none Packing: none JIMMY BAILEY MD Jul 21, 2021 09:24
[2021-07-21] MEDS ORDERED: ONDANSETRON 4 MG/2 ML (SDV) Z0FRAN IV ONE (09:30)
[2021-07-21] MEDS ORDERED: ONDANSETRON 4 MG/2 ML (SDV) Z0FRAN ONE (10:04)
[2021-07-21] MEDS ORDERED: morphine INJ 10 MG/ML 1ML (SYR OR VIAL) IVP ONE (11:15)
[2021-07-21] MEDS ORDERED: HYDROmorphone 2 MG/ML VIAL (DILAUDID) IV ONE (11:15)
[2021-07-21] MEDS ORDERED: ONDANSETRON 4 MG/2 ML (SDV) Z0FRAN IVP PRN (11:15)
[2021-07-21] MEDS ORDERED: MEPERIDINE (DEMEROL) INJ 50 MG/ML IVP ONE (11:15)
--- NOTE | 2021-07-21 11:44 | Anesthesia-General Post-Op ---
MAC Patient Condition Mental Status/LOC: Same as Preop Cardiovascular: Satisfactory Nausea/Vomiting: Absent Respiratory: Satisfactory Pain: Controlled Complications: Absent Post Op Complications Complications None Follow Up Care/Instructions Patient Instructions None needed. Anesthesiology Discharge Order Discharge Order Patient is doing well, no complaints, stable vital signs, no apparent adverse anesthesia problems. No complications reported per nursing. TONE BELTRAN CRNA Jul 21, 2021 11:44
--- NOTE | 2021-07-21 14:09 | OPERATIVE REPORT ---
DATE OF SERVICE: 07/21/2021 PREOPERATIVE DIAGNOSIS: Right carpal tunnel syndrome. POSTOPERATIVE DIAGNOSIS: Right carpal tunnel syndrome. PROCEDURE: Right open carpal tunnel release. SURGEON: Mir Riojas MD ATTENDING PHYSICIAN: None. ANESTHESIA: Monitored anesthesia care plus local by Chris Canseco CRNA. TOURNIQUET TIME: 3 minutes at 250 mmHg. ESTIMATED BLOOD LOSS: Minimal. DRAINS: None. COMPLICATIONS: None. POSTOPERATIVE PLAN: Routine protocol. The patient was transferred to the recovery room awake and in stable condition. STATEMENT OF MEDICAL NECESSITY: The patient is a 51-year-old right hand dominant female with complaints of progressively worsening right hand pain and paresthesias. She had a positive Tinel's of carpal tunnel with positive Phalen's maneuver. She had tried rest, activity modifications, and anti-inflammatories without relief. Due to functional impairment and failure to improve with conservative measures, the patient elected to proceed with surgical intervention. DESCRIPTION OF PROCEDURE: After risks and benefits of procedure were discussed and questions were answered, an informed consent was signed and placed on chart, the operative site was confirmed in the preoperative holding area initialed by the surgeon. The patient was then transferred to the operating room and after adequate levels of monitored anesthesia care were obtained, a timeout was called, confirming the operative site. Right upper extremity was prepped and draped in the usual sterile fashion after infiltrating the incision site under sterile conditions with a combination of plain lidocaine and Marcaine. After prepping and draping, the arm was elevated, tourniquet was inflated to 250 mmHg. A longitudinal incision was made in line with radial border of the ring finger over the transverse carpal ligament, the underlying soft tissues were carefully dissected. The transverse carpal ligament was identified and sharply incised by pushing through with the scalpel blade. Distally, the transverse carpal ligament was confirmed fully released under direct visualization. Proximally, the transverse carpal ligament was spread above and below with dissection scissors and then while carefully protecting the median nerve was released under direct visualization. This was confirmed fully freed with a freer. The median nerve was intact at the conclusion of the procedure. The tourniquet was deflated for a total tourniquet time 3 minutes. Pressure was used for hemostasis. Wound was copiously irrigated and then closed with 4-0 nylon running alternating horizontal mattress fashion. A soft dressing and brace were applied. The patient was transferred to the recovery room awake and in stable condition. Job ID: [id number] DocumentID: [id number] Dictated Date: 07/21/2021 11:02:27 Spa Manager Date: 07/21/2021 14:09:16 Dictated By: MIR RIOJAS MD
== END 2021-07-21 12:28 | disposition home or self-care (01) ==
LOC: SDC 09:00
PROVIDERS: ATTEND Orthopaedic Surgery
DX: G56.01 Carpal tunnel syndrome, right upper limb (principal)
CPT/HCPCS: 84703; 87081

== ENCOUNTER 2021-08-25 13:32 | Outpatient (RCR) | payer OTHER | END 2021-08-28 | disposition home or self-care (01) | PROVIDERS: ATTEND Orthopaedic Surgery | DX: G56.03 Carpal tunnel syndrome, bilateral upper limbs (principal) ==

== ENCOUNTER → 2021-09-28 | Outpatient (RCR) | payer OTHER | END | disposition home or self-care (01) | PROVIDERS: ATTEND Orthopaedic Surgery | DX: G56.03 Carpal tunnel syndrome, bilateral upper limbs (principal) ==

== ENCOUNTER 2021-10-13 13:49 | Outpatient (RCR) | payer OTHER | END 2021-10-28 | disposition home or self-care (01) | PROVIDERS: ATTEND Orthopaedic Surgery | DX: G56.03 Carpal tunnel syndrome, bilateral upper limbs (principal) ==

== ENCOUNTER 2022-05-23 11:32 | Outpatient (CLI) | payer OTHER ==
[~2022-05-23] VITALS: Ht 167.7 cm; Wt 65.9 kg
== END 2022-05-23 12:31 | disposition home or self-care (01) ==
LOC: PREOP 11:32
PROVIDERS: ATTEND Orthopaedic Surgery
DX: Z01.818 Encounter for other preprocedural examination (principal)

== ENCOUNTER 2022-05-25 06:09 | Day surgery (SDC) | payer OTHER ==
--- NOTE | 2022-05-23 13:14 | HISTORY AND PHYSICAL ---
DATE OF SERVICE: 05/25/2022 Date of outpatient surgery will be 05/25/2022 for left carpal tunnel release. HISTORY: The patient is a 52-year-old right-hand dominant female with persistent left hand pain and paresthesias. She reports wrist pain. She has been wearing a splint. She has tried activity modifications without relief. She reports persistent paresthesias in her thumb and index finger. She reports marked activity limitation. Because of this, it was elected to proceed with surgical intervention. REVIEW OF SYSTEMS: No chest pain. No shortness of breath. No dysuria. PAST MEDICAL HISTORY: Unremarkable. PAST SURGICAL HISTORY: ACDF C5 and C6, left foot bunionectomy, breast reduction, , right knee arthroscopy, right open carpal tunnel release. FAMILY HISTORY: Significant for hyperlipidemia, chronic obstructive pulmonary disease, diabetes. PRIMARY CARE PROVIDER: Dr. Brown. MEDICATIONS: Zyrtec, ibuprofen, multivitamin. ALLERGIES: NO KNOWN DRUG ALLERGIES. SOCIAL HISTORY: The patient denies alcohol and tobacco use. PHYSICAL EXAMINATION: GENERAL: The patient is well-developed, well-nourished, in no acute distress. HEENT: Normocephalic, atraumatic. Pupils equal, round, reactive to light. Oropharynx is clear. NECK: Supple. No lymphadenopathy. LUNGS: Clear to auscultation bilaterally. HEART: Regular rate and rhythm. ABDOMEN: Soft, nontender, nondistended. EXTREMITIES: The left hand demonstrates decreased sensation in the median distribution. She has a markedly positive Tinel's at the carpal tunnel, negative Tinel's at the cubital tunnel. She has negative elbow flexion test. She has a positive Phalen's maneuver. IMPRESSION: Left carpal tunnel syndrome. PLAN: Left open carpal tunnel release. The risks, benefits, options, ramifications and recovery were discussed at length with the patient. She understands and wishes to proceed. Job ID: [id number] DocumentID: [id number] Dictated Date: 05/23/2022 09:55:43 Professor Of Fine Art Date: 05/23/2022 13:13:00 Dictated By: JIMMY BAILEY MD
[~2022-05-25] VITALS: Ht 167.7 cm; Wt 65.9 kg
[2022-05-25] VITALS (10 sets, daily range): BP systolic 85–116; BP diastolic 59–78
[2022-05-25] MEDS ORDERED: ceFAZolin INJECTION 1,000 MG in NS (IVPB) 50 ML IV ONE (06:15)
[2022-05-25] MEDS ORDERED: LACTATED RINGERS 1,000 ML IV PRN (06:15)
[2022-05-25] MEDS ORDERED: CATHETER FLUSH 10 ML SYR IVP PRN (06:30)
[2022-05-25] MEDS ORDERED: ONDANSETRON 4 MG/2 ML (SDV) Z0FRAN ONE ×2 (06:54→06:59)
[2022-05-25] MEDS ORDERED: PROPOFOL INJECTION 50 ML IV ONE (06:59)
[2022-05-25] MEDS ORDERED: BUPIVACAINE 0.5% 30 ML (SENSORCAINE) VIAL ONE (06:59)
[2022-05-25] MEDS ORDERED: MIDAZOLAM 2 MG/2 ML (VERSED) VIAL ONE (06:59)
[2022-05-25] MEDS ORDERED: LIDOCAINE 1% INJ 20 ML VIAL ONE (06:59)
[2022-05-25] MEDS ORDERED: ONDANSETRON 4 MG/2 ML (SDV) Z0FRAN IV ONE (07:00)
[2022-05-25] MEDS ORDERED: HYDROcodone/APAP 7.5 MG/325 MG (LORTAB, LORCET PLUS) TABLET PO PRN (07:15)
--- NOTE | 2022-05-25 07:38 | Progress Note-Pre Operative ---
Pre-Operative Progress Note Date of Available H&P: May 23, 2022 Date H&P Reviewed: May 25, 2022 Time H&P Reviewed: 07:11 Changes from last HP none Pre-Operative Diagnosis: left carpal tunnel syndrome JIMMY BAILEY MD May 25, 2022 07:38
[2022-05-25] MEDS ORDERED: HYDR-3817 PO (07:39)
--- NOTE | 2022-05-25 07:39 | Progress Note-Post Operative ---
Post-Operative Progess Note Surgeon (s)/Multicut Line Operator (s) Surgeon JIMMY BAILEY MD Multicut Line Operator: Lobo Tompkins Pre-Operative Diagnosis left carpal tunnel syndrome Post-Operative Diagnosis left carpal tunnel syndrome Procedure & Operative Findings Date of Procedure 05/25/22 Procedure Performed/Findings left carpal tunnel release Anesthesia Type MAC plus local Estimated Blood Loss Estimated blood loss (mL): minimal Specimens/Packing Specimens Removed none Packing: none JIMMY BAILEY MD May 25, 2022 07:39
[2022-05-25] MEDS ORDERED: LIDOCAINE 1% INJ 20 ML VIAL INJ ONE (08:00)
[2022-05-25] MEDS ORDERED: BUPIVACAINE 0.5% 30 ML (SENSORCAINE) VIAL INJ ONE (08:01)
[2022-05-25] MEDS ORDERED: morphine INJ 10 MG/ML 1ML (SYR OR VIAL) IVP ONE (08:15)
[2022-05-25] MEDS ORDERED: ONDANSETRON 4 MG/2 ML (SDV) Z0FRAN IVP PRN (08:15)
[2022-05-25] MEDS ORDERED: MEPERIDINE (DEMEROL) INJ 50 MG/ML IVP ONE (08:15)
[2022-05-25] MEDS ORDERED: PROMETHAZINE INJ 25 MG/ML (PHENERGAN) AMP IVP ONE (08:15)
[2022-05-25] MEDS ORDERED: HYDROmorphone 2 MG/ML VIAL (DILAUDID) IV ONE (08:15)
--- NOTE | 2022-05-25 16:03 | OPERATIVE REPORT ---
DATE OF SERVICE: 05/25/2022 PREOPERATIVE DIAGNOSIS: Left carpal tunnel syndrome. POSTOPERATIVE DIAGNOSIS: Left carpal tunnel syndrome. PROCEDURE: Left open carpal tunnel release. SURGEON: Dr. Riojas. VEST MAKER: Lobo Tompkins, who assisted throughout the procedure and closed the incision. ANESTHESIA: Monitored anesthesia care plus local by Chris Canseco CRNA. TOURNIQUET TIME: Approximately 3 minutes at 250 mmHg. ESTIMATED BLOOD LOSS: Minimal. DRAINS: None. COMPLICATIONS: None. POSTOPERATIVE PLAN: Routine protocol. The patient was transferred to the recovery room awake and in stable condition. STATEMENT OF MEDICAL NECESSITY: The patient is a 52-year-old right-hand dominant female with complaints of persistent paresthesias in a median distribution in her left hand. She had a markedly positive Tinel's of the carpal tunnel. She reported marked activity limitations and because of this, I elected to proceed with surgical intervention. DESCRIPTION OF PROCEDURE: After risks and benefits of the procedure were discussed and questions were answered, an informed consent was signed and placed on the chart. The operative site was confirmed in the preoperative holding area initialed by the surgeon. The patient was then transported to the operating room and after adequate level of monitored anesthesia care obtained, timeout was called, confirming the operative site. Under sterile conditions, the incision site and the left hand was infiltrated with a combination of plain lidocaine and plain Marcaine. The left upper extremity was prepped and draped in the usual sterile fashion with the arm elevated, tourniquet was inflated to 250 mmHg. A longitudinal incision was made in line with the radial border of the ring finger over the transverse carpal ligament. The underlying soft tissues were carefully dissected. The transverse carpal ligament was identified and sharply incised by pushing through the scalpel blade while carefully protecting the median nerve. The transverse carpal ligament was confirmed fully released distally under direct visualization proximally while carefully protecting the median nerve. The transverse carpal ligament was spread above and below with dissection scissors and then under direct visualization, the remainder of the proximal aspect was opened with the slightly open scissor edges while protecting the nerve. This was confirmed fully released with a Parlier. The nerve was inspected with no gross abnormalities noted. Tourniquet was deflated for a total tourniquet time of approximately 2 minutes. Pressure was used for hemostasis. The wound was copiously irrigated and closed with 4-0 nylon in a running alternating horizontal mattress fashion. A soft dressing and brace were applied. The patient was transferred to recovery room awake and stable condition. Job ID: [id number] DocumentID: [id number] Dictated Date: 05/25/2022 08:06:55 Geographic Information Systems Analyst Date: 05/25/2022 16:01:00 Dictated By: JIMMY RIOJAS MD
== END 2022-05-25 09:40 | disposition home or self-care (01) ==
LOC: SDC 06:09
PROVIDERS: ATTEND Orthopaedic Surgery
DX: G56.02 Carpal tunnel syndrome, left upper limb (principal); Z87.891 Personal history of nicotine dependence
CPT/HCPCS: 84703; 87081

== ENCOUNTER → 2022-06-15 | Outpatient (CLI) | payer OTHER ==
[~2022-06-15] MED LIST changes: +HYDR-3817 PO
--- NOTE | 2022-06-15 11:22 | Diagnostic Imaging Report ---
INDICATION: Routine screening. Comparison is made with prior mammogram from 06/16/2021 and 06/01/2020. 2-D and 3-D bilateral screening mammography was performed with CAD. CAD is utilized. The current study was also evaluated with a Computer Aided Detection (CAD) system. Both breasts are heterogeneously dense, limiting the sensitivity of mammography. Benign nodules in the upper left breast are stable. There are benign calcifications in both breasts, stable. No spiculated mass or malignant-appearing microcalcifications are seen. Axillae are unremarkable. IMPRESSION: BI-RADS Category 2 No mammographic features suspicious for malignancy are identified. ACR BI-RADS Category 2: Benign findings. Result letter will be mailed to the patient. Note: At least 10% of breast cancer is not imaged by mammography. Dictated by: Dictated on workstation # [id number]
== END ==
LOC: RAD 07:18
PROVIDERS: ATTEND Nurse Practitioner Family
DX: Z12.31 Encounter for screening mammogram for malignant neoplasm of breast (principal)
CPT/HCPCS: 77063; 77067

== ENCOUNTER → 2022-08-19 | Outpatient (CLI) | payer OTHER ==
[2022-08-19 10:30] LABS: ALBUMIN 4.3 GM/DL (3.2-4.5); POTASSIUM 3.4 MMOL/L (3.6-5.0)
[2022-08-19 10:31] LABS: CALCIUM 9.5 MG/DL (8.5-10.1)
[2022-08-19 10:33] LABS: TOTAL PROTEIN 7.5 GM/DL (6.4-8.2)
[2022-08-19 10:34] LABS: BILIRUBIN,TOTAL 0.3 MG/DL (0.1-1.0)
[2022-08-19 10:36] LABS: CREATININE SERUM 0.77 MG/DL (0.60-1.30)
== END ==
LOC: LAB 09:57
PROVIDERS: ATTEND Nurse Practitioner Family
DX: R76.8 Other specified abnormal immunological findings in serum (principal)
CPT/HCPCS: 80053; 86705; G0499; 36415; 86706